=== PATIENT | female | born 2000 | race Caucasian/White ===

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

== ENCOUNTER 2018-07-26 16:41 | Emergency (ER) | payer BC ==
[2018-07-26 17:11] VITALS: BP 143/67
--- NOTE | 2018-07-26 17:48 | UC ---
Throat Pain/Nasal Kavin HPI - HPI Summary HPI Summary: Pt presents with multiple c/o. 1. ST 2. c/o vaginal itching and labia swelling. Pt has used 3 days of otc monistat from a 7 day package. 3. pt has concern for STD's and preganancy. Pt engaged in unprotected sex 6 days ago. Pt has not been taking BCP. - History of Current Complaint Chief Complaint: UCGU Stated Complaint: SORE THROAT Time Seen by Provider: 07/26/18 17:08 Hx Obtained From: Patient Hx Last Menstrual Period: 06/12/17 ?: No Onset/Duration: Sudden Onset, Lasting Days, Still Present Severity: Mild Pain Intensity: 4 Cough: None Associated Signs & Symptoms: Positive: Dysphagia - Epiglottits Risk Factors Epiglottis Risk Factors: Negative - Allergies/Home Medications Allergies/Adverse Reactions: Allergies Allergy/AdvReac Type Severity Reaction Status Date / Time No Known Allergies Allergy Verified 07/26/18 17:11 Home Medications: Home Medications Miconazole VAG.SUPP* [Monistat7*] 100 mg VAGINAL BEDTIME 07/26/18 [History Confirmed 07/26/18] PMH/Surg Hx/FS Hx/Imm Hx Previously Healthy: Yes - Surgical History Surgical History: None - Family History Known Family History: Negative: Cardiac Disease, Hypertension - Social History Occupation: Student - [employer] Lives: Dormitory/Roommates Alcohol Use: Occasionally Substance Use Type: None Smoking Status (MU): Never Smoked Tobacco Have You Smoked in the Last Year: No - Immunization History Most Recent Influenza Vaccination: NOT IN 2017 YET Vaccination Up to Date: Yes Review of Systems Constitutional: Negative Skin: Negative Eyes: Negative ENT: Sore Throat Respiratory: Negative Cardiovascular: Negative Gastrointestinal: Negative Genitourinary: Vaginal/Penile Burning, Vaginal/Penile Itching Motor: Negative Neurovascular: Negative Musculoskeletal: Negative Neurological: Negative Psychological: Negative Is Patient Immunocompromised?: No All Other Systems Reviewed And Are Negative: Yes Physical Exam Triage Information Reviewed: Yes Appearance: Well-Appearing Vital Signs: Initial Vital Signs Temp 97.3 F 07/26/18 17:01 Pulse 92 07/26/18 17:01 Resp 16 07/26/18 17:01 BP 143/67 07/26/18 17:01 Pulse Ox 100 07/26/18 17:01 Vital Signs Reviewed: Yes Eye Exam: Normal ENT Exam: Other ENT: Positive: Tonsillar swelling, Tonsillar exudate Dental Exam: Normal Neck exam: Normal Respiratory Exam: Normal Cardiovascular Exam: Normal Abdominal Exam: Normal Abdomen Description: Positive: Nontender, Soft Bowel Sounds: Positive: Present Musculoskeletal Exam: Normal Neurological Exam: Normal Psychological Exam: Normal Skin Exam: Normal Throat Pain/Nasal Course/Dx - Differential Dx/Diagnosis Differential Diagnosis/HQI/PQRI: Pharyngitis, Tonsillitis, URI, Other - vaginitis Provider Diagnoses: sore throat. vaginitis Discharge - Sign-Out/Discharge Documenting (check all that apply): Patient Departure All imaging exams completed and their final reports reviewed: No Studies - Discharge Plan Condition: Stable Disposition: HOME Patient Education Materials: Pharyngitis (ED), Vaginitis (ED) Referrals: [facility] [Outside] - If Needed No Primary Care Phys,NOPCP [Primary Care Provider] - Additional Instructions: Please follow up with our PCP or the [facility] as needed. If symptoms persist or worsen seek care immediately at the closest healthcare facility. - Billing Disposition and Condition Condition: STABLE Disposition: Home
--- NOTE | 2018-07-29 07:25 | UC ---
- Progress Note Progress Note: notify pt +BV flagyl 500 BID x 7 days ERxed Discharge - Sign-Out/Discharge Documenting (check all that apply): Post-Discharge Follow Up All imaging exams completed and their final reports reviewed: No Studies - Discharge Plan Condition: Stable Disposition: HOME Prescriptions: metroNIDAZOLE [Flagyl] 500 mg PO BID #14 tablet Patient Education Materials: Pharyngitis (ED), Vaginitis (ED) Referrals: [facility] [Outside] - If Needed No Primary Care Phys,NOPCP [Primary Care Provider] - Additional Instructions: Please follow up with our PCP or the [facility] as needed. If symptoms persist or worsen seek care immediately at the closest healthcare facility. - Billing Disposition and Condition Condition: STABLE Disposition: Home
== END 2018-07-26 17:56 | disposition home or self-care (01) ==
LOC: UCCORT 16:41
DX: J02.9 Acute pharyngitis, unspecified (principal); N76.0 Acute vaginitis
CPT/HCPCS: 81003; 84702; 87480; 87491; 87510; 87591; 87651; 87660; 99212; G0463

== ENCOUNTER 2018-12-22 10:33 | Emergency (ER) | payer BC ==
[2018-12-22 11:02] VITALS: BP 133/66
--- NOTE | 2018-12-22 11:32 | ED ---
Neurological HPI - HPI Summary HPI Summary: Sunday night she drank etoh heavily and smoked cannibus. She denies opioid use of any kind. She awoke yesterday with left arm tingling and left shoulder weakness. She knows she slept in an awkward position. Denies neck pain, traum, bruising or injury. - History of Current Complaint Chief Complaint: UCUpperExtremity Stated Complaint: L ARM NUMB AND TINGLING Time Seen by Provider: 12/22/18 11:14 Hx Obtained From: Patient Hx Last Menstrual Period: 12/17/18 Onset/Duration: Gradual Onset, Started hours ago Onset Severity: Moderate Current Severity: Moderate Neurological Deficit Location: LUE Headache Location: Diffuse (Left) Pain Intensity: 9 Character: Numbness/Tingling, Paresthesia, Motor Weakness Aggravating: Alcohol/Drug Ingestion Alleviating: Nothing Associated Signs and Symptoms: Positive: Weakness. Negative: Tinnitus, Unsteady Gait, Visual Changes, Headache, Memory Loss, Seizure, Decreased Level of Consciousness, Impaired Speech, Numbness, Sinus Pressure, Fever, Neck Pain/ Stiffness - Allergy/Home Medications Allergies/Adverse Reactions: Allergies Allergy/AdvReac Type Severity Reaction Status Date / Time No Known Allergies Allergy Verified 12/22/18 11:02 Home Medications: Home Medications NK [No Home Medications Reported] 12/22/18 [History Confirmed 12/22/18] PMH/Surg Hx/FS Hx/Imm Hx Previously Healthy: No Infectious Disease History: No Infectious Disease History: Denies: Traveled Outside the [place] in Last 30 Days - Family History Known Family History: Negative: Cardiac Disease, Hypertension - Social History Alcohol Use: Weekly Substance Use Type: Reports: None Smoking Status (MU): Light Every Day Tobacco Smoker Type: eCigarettes Have You Smoked in the Last Year: No Review of Systems Positive: Weakness, Paresthesia All Other Systems Reviewed And Are Negative: Yes Physical Exam Triage Information Reviewed: Yes Vital Signs On Initial Exam: Initial Vitals Temp Pulse Resp BP Pulse Ox 97.4 F 80 18 133/66 98 12/22/18 10:55 12/22/18 10:55 12/22/18 10:55 12/22/18 10:55 12/22/18 10:55 Vital Signs Reviewed: Yes Appearance: Positive: Well-Appearing, No Pain Distress, Obese Skin: Positive: Warm, Skin Color Reflects Adequate Perfusion Head/Face: Positive: Normal Head/Face Inspection Eyes: Positive: Normal, EOMI, CHARLES ENT: Positive: Hearing grossly normal Neck: Positive: Supple, Nontender, No Lymphadenopathy. Negative: Nuchal Rigidity Respiratory/Lung Sounds: Positive: Breath Sounds Present, Decreased Breath Sounds. Negative: Rales, Rhonchi Cardiovascular: Positive: RRR, Pulses are Symmetrical in both Upper and Lower Extremities Abdomen Description: Positive: No Organomegaly, Soft. Negative: Distended, Guarding Pelvic Exam: Positive: No Masses Musculoskeletal: Positive: Strength/ROM Intact Neurological: Positive: Normal - Symmetric, no bruisnig or tenderness. Neck full rom and spurling neg. No neck tenderness. 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 There is weakness with shoulder abduction. There is no winging of the scapula.. Negative: Sensory/Motor Intact Psychiatric: Positive: Normal AVPU Assessment: Alert Diagnostics - Vital Signs Vital Signs Temp Pulse Resp BP Pulse Ox 12/22/18 10:55 97.4 F 80 18 133/66 98 - Laboratory Lab Statement: Any lab studies that have been ordered have been reviewed, and results considered in the medical decision making process. Course/Dx - Course Course Of Treatment: We discussed meaning of sunday night palsy and that specialist f/u is in order. No trauma to suggest mechanism for disc herniation or rotator cuff tear. THis is likely brachial plexus injury. - Differential Dx Differential Diagnoses Neuro: Positive: Drug Toxicity, Intracranial Bleed, Meningitis - Diagnoses Provider Diagnoses: Sunday night nerve palsy Discharge - Sign-Out/Discharge Documenting (check all that apply): Patient Departure All imaging exams completed and their final reports reviewed: No Studies - Discharge Plan Condition: Fair Disposition: HOME Patient Education Materials: Paresthesia (ED) Referrals: No Primary Care Phys,NOPCP [Primary Care Provider] - Sumanth Isidro MD [Medical Doctor] - Additional Instructions: This is called SUNDAY NIGHT PALSY. - Billing Disposition and Condition Condition: FAIR Disposition: Home
== END 2018-12-22 11:31 | disposition home or self-care (01) ==
LOC: UCCORT 10:33
DX: G58.9 Mononeuropathy, unspecified (principal); F17.290 Nicotine dependence, other tobacco product, uncomplicated
CPT/HCPCS: 99211; G0463

== ENCOUNTER 2019-02-19 20:39 | Emergency (ER) | payer BC ==
[2019-02-19 20:55] VITALS: BP 134/52
--- NOTE | 2019-02-19 21:04 | UC ---
Throat Pain/Nasal Kavin HPI - HPI Summary HPI Summary: Pt c/o ST and "white stuff" on right tonsil X 2 days. Denies fever, chills or difficulty swallowing. - History of Current Complaint Chief Complaint: UCGeneralIllness Stated Complaint: SORE THROAT Time Seen by Provider: 02/19/19 20:43 Hx Obtained From: Patient Hx Last Menstrual Period: 02/18/19 ?: No Onset/Duration: Gradual Onset, Lasting Days, Still Present Severity: Mild Pain Intensity: 3 Cough: None - Epiglottits Risk Factors Epiglottis Risk Factors: Negative - Allergies/Home Medications Allergies/Adverse Reactions: Allergies Allergy/AdvReac Type Severity Reaction Status Date / Time No Known Allergies Allergy Verified 02/19/19 20:50 PMH/Surg Hx/FS Hx/Imm Hx Previously Healthy: Yes - Surgical History Surgical History: None - Family History Known Family History: Negative: Cardiac Disease, Hypertension - Social History Occupation: Student Lives: Dormitory/Roommates Alcohol Use: Occasionally Substance Use Type: None Smoking Status (MU): Light Every Day Tobacco Smoker Type: eCigarettes Amount Used/How Often: 1 cartridge/week Have You Smoked in the Last Year: Yes - eCig - Immunization History Most Recent Influenza Vaccination: NOT IN 2017 YET Vaccination Up to Date: Yes Review of Systems All Other Systems Reviewed And Are Negative: Yes Constitutional: Positive: Negative Skin: Positive: Negative Eyes: Positive: Negative ENT: Positive: Sore Throat Respiratory: Positive: Negative Cardiovascular: Positive: Negative Gastrointestinal: Positive: Negative Genitourinary: Positive: Negative Motor: Positive: Negative Neurovascular: Positive: Negative Musculoskeletal: Positive: Negative Neurological: Positive: Negative Psychological: Positive: Negative Is Patient Immunocompromised?: No Physical Exam Triage Information Reviewed: Yes Appearance: Well-Appearing Vital Signs: Initial Vital Signs Temp 98.3 F 02/19/19 20:50 Pulse 94 02/19/19 20:50 Resp 16 02/19/19 20:50 BP 134/52 02/19/19 20:50 Pulse Ox 99 02/19/19 20:50 Vital Signs Reviewed: Yes Eye Exam: Normal ENT Exam: Other ENT: Positive: Pharyngeal erythema, Tonsillar swelling, Tonsillar exudate - rigth tonsil, Dental Exam: Normal Neck exam: Normal Respiratory Exam: Normal Cardiovascular Exam: Normal Musculoskeletal Exam: Normal Neurological Exam: Normal Psychological Exam: Normal Skin Exam: Normal Throat Pain/Nasal Course/Dx - Differential Dx/Diagnosis Differential Diagnosis/HQI/PQRI: Mononucleosis, Pharyngitis, Tonsillitis Provider Diagnosis: Tonsillitis with exudate Discharge - Sign-Out/Discharge Documenting (check all that apply): Patient Departure All imaging exams completed and their final reports reviewed: No Studies - Discharge Plan Condition: Stable Disposition: HOME Patient Education Materials: Tonsillitis (ED) Referrals: [facility] [Outside] - If Needed No Primary Care Phys,NOPCP [Primary Care Provider] - - Billing Disposition and Condition Condition: STABLE Disposition: Home
== END 2019-02-19 21:12 | disposition home or self-care (01) ==
LOC: UCCORT 20:39
DX: J03.90 Acute tonsillitis, unspecified (principal); F17.210 Nicotine dependence, cigarettes, uncomplicated
CPT/HCPCS: 87651; 99211; G0463

== ENCOUNTER 2019-06-23 11:27 | Emergency (ER) | payer BC ==
[2019-06-23 11:41] VITALS: BP 122/61
--- NOTE | 2019-06-23 12:15 | ED ---
Respiratory - HPI Summary HPI Summary: 18 yr old female with the complaint of runny nose, coughing, sore throat. Onset yesterday. Her ears feel plugged. She states that her cough is what bothers her the most. She has no fever. She has no SOB. No history of asthma. She is not a smoker. She is from [place], [place]. She is a [employer] student. - History of Current Complaint Chief Complaint: UCGeneralIllness Stated Complaint: COUGH,CONGESTION Time Seen by Provider: 06/23/19 12:00 Pain Intensity: 0 - Allergy/Home Medications Allergies/Adverse Reactions: Allergies Allergy/AdvReac Type Severity Reaction Status Date / Time No Known Allergies Allergy Verified 06/23/19 11:41 Home Medications: Home Medications Dm/Acetaminophen/Doxylamine [Nighttime Cold and Flu Liquid] 30 ml PO ONCE [History Confirmed 06/23/19] PMH/Surg Hx/FS Hx/Imm Hx Infectious Disease History: No Infectious Disease History: Denies: Traveled Outside the in Last 30 Days - Family History Known Family History: Positive: None Negative: Cardiac Disease, Hypertension - Social History Occupation: Student Alcohol Use: Weekly Substance Use Type: Reports: Marijuana Substance Use Comment - Amount & Last Used: occasionally Smoking Status (MU): Light Every Day Tobacco Smoker Type: eCigarettes Amount Used/How Often: 1 cartridge/week Have You Smoked in the Last Year: Yes - eCig Review of Systems Constitutional: Negative Positive: Sore Throat, Nasal Discharge Positive: Cough All Other Systems Reviewed And Are Negative: Yes Physical Exam Triage Information Reviewed: Yes Vital Signs On Initial Exam: Initial Vitals Temp Pulse Resp BP Pulse Ox 98.2 F 80 16 122/61 100 06/23/19 11:35 06/23/19 11:35 06/23/19 11:35 06/23/19 11:35 06/23/19 11:35 Vital Signs Reviewed: Yes Appearance: Positive: Well-Appearing, No Pain Distress Skin: Positive: Warm, Skin Color Reflects Adequate Perfusion Head/Face: Positive: Normal Head/Face Inspection Eyes: Positive: EOMI, CHARLES ENT: Positive: Pharyngeal erythema, Nasal congestion, Nasal drainage, TM red - left with effussion and redness.. Negative: Muffled voice, Hoarse voice, Sinus tenderness Neck: Positive: Supple Respiratory/Lung Sounds: Positive: Clear to Auscultation, Breath Sounds Present Cardiovascular: Positive: RRR. Negative: Murmur Abdomen Description: Negative: Distended Musculoskeletal: Positive: Strength/ROM Intact Neurological: Positive: Sensory/Motor Intact, Alert, Oriented to Person Place, Time, CN Intact II-III, Normal Gait, Speech Normal Psychiatric: Positive: Normal Diagnostics - Vital Signs Vital Signs Temp Pulse Resp BP Pulse Ox 06/23/19 11:35 98.2 F 80 16 122/61 100 - Laboratory Lab Statement: Any lab studies that have been ordered have been reviewed, and results considered in the medical decision making process. Disposition - Course Course Of Treatment: 18 yr old with URI and left otitis media. tessalon and albuterol MDI for cough, and amox for left OM. - Diagnoses Provider Diagnoses: Left otitis media, Upper respiratory infection Discharge ED - Sign-Out/Discharge Documenting (check all that apply): Patient Departure All imaging exams completed and their final reports reviewed: No Studies - Discharge Plan Condition: Good Disposition: HOME Prescriptions: Albuterol HFA INHALER* [Ventolin HFA Inhaler*] 1 - 2 puff INH Q6H PRN #1 mdi PRN Reason: Cough Amoxicillin PO (*) [Amoxicillin 500 MG CAP*] 500 mg PO TID #30 cap Benzonatate CAP* [Tessalon 100 MG CAP*] 100 mg PO TID #14 cap Patient Education Materials: Ear Infection (ED), Upper Respiratory Infection ( ED) Referrals: No Primary Care Phys,NOPCP [Primary Care Provider] - [facility] [Outside] - 1 Day [facility] [Outside] - 1 Day - Billing Disposition and Condition Condition: GOOD Disposition: Home
== END 2019-06-23 12:19 | disposition home or self-care (01) ==
LOC: UCCORT 11:27
DX: H66.92 Otitis media, unspecified, left ear (principal); J06.9 Acute upper respiratory infection, unspecified; F17.290 Nicotine dependence, other tobacco product, uncomplicated
CPT/HCPCS: 99212; G0463

== ENCOUNTER 2019-11-10 10:35 | Emergency (ER) | payer BC ==
[2019-11-10 10:52] VITALS: BP 124/57
--- NOTE | 2019-11-10 11:16 | UC ---
Lower Extremity/Ankle HPI - HPI Summary HPI Summary: Pt presents with c/o puncture wound in left foot that occurred last night. Pt sates she stepped on belt buckle at apartment and "2 inch piece went through foot". Pt is UTD with vaccinations. PO - History of Current Complaint Chief Complaint: UCLowerExtremity Stated Complaint: LT FOOT INJURY Time Seen by Provider: 11/10/19 11:00 Hx Obtained From: Patient Hx Last Menstrual Period: 11/09/19 ?: No Onset/Duration: Sudden Onset, Still Present Severity Initially: Moderate Severity Currently: Mild Pain Intensity: 4 Aggravating Factor(s): Standing, Ambulation Alleviating Factor(s): Rest Able to Bear Weight: Yes - painful - Risk Factors Gout Risk Factors: Negative DVT Risk Factors: Negative Septic Arthritis Risk Factor: Negative - Allergies/Home Medications Allergies/Adverse Reactions: Allergies Allergy/AdvReac Type Severity Reaction Status Date / Time No Known Allergies Allergy Verified 11/10/19 10:52 Home Medications: Home Medications Ibuprofen 600 mg PO Q6HR PRN 11/10/19 [History Confirmed 11/10/19] PMH/Surg Hx/FS Hx/Imm Hx Previously Healthy: Yes - Surgical History Surgical History: None - Family History Known Family History: Positive: None Negative: Cardiac Disease, Hypertension - Social History Occupation: Student - [employer] Lives: Dormitory/Roommates Alcohol Use: Occasionally Substance Use Type: None Substance Use Comment - Amount & Last Used: occasionally Smoking Status (MU): Former Smoker Type: eCigarettes Amount Used/How Often: 1 cartridge/week Have You Smoked in the Last Year: Yes - eCig - Immunization History Most Recent Influenza Vaccination: NOT IN 2017 YET Vaccination Up to Date: Yes Review of Systems All Other Systems Reviewed And Are Negative: Yes Constitutional: Positive: Negative Skin: Positive: Other - puncture wound Eyes: Positive: Negative ENT: Positive: Negative Respiratory: Positive: Negative Cardiovascular: Positive: Negative Gastrointestinal: Positive: Negative Genitourinary: Positive: Negative Motor: Positive: Negative Neurovascular: Positive: Negative Musculoskeletal: Positive: Myalgia - pain at puncture site Neurological: Positive: Negative Psychological: Positive: Negative Is Patient Immunocompromised?: No Physical Exam Triage Information Reviewed: Yes Appearance: Well-Appearing Vital Signs: Initial Vital Signs Temp 98 F 11/10/19 10:46 Pulse 82 11/10/19 10:46 Resp 16 11/10/19 10:46 BP 124/57 11/10/19 10:46 Pulse Ox 99 11/10/19 10:46 Vital Signs Reviewed: Yes Eye Exam: Normal ENT Exam: Normal ENT: Positive: Hearing grossly normal Dental Exam: Normal Neck exam: Normal Respiratory: Positive: No respiratory distress Musculoskeletal: Positive: Other: - pain at puncture site mid foot Neurological Exam: Normal Psychological Exam: Normal Skin Exam: Other - puncture wound mid left foot Diagnostics - Radiology No standard instances Radiology Interpretation Completed By: Radiologist - negative for FB, negative fracture Lower Extremity Course/Dx - Differential Dx/Diagnosis Differential Diagnosis/HQI/PQRI: Cellulitis, Foreign Body, Other Provider Diagnosis: Puncture wound of left foot Discharge ED - Sign-Out/Discharge Documenting (check all that apply): Patient Departure All imaging exams completed and their final reports reviewed: Yes - Discharge Plan Condition: Stable Disposition: HOME Prescriptions: Cephalexin CAP* [Keflex 500 CAP*] 500 mg PO Q12H #10 cap Patient Education Materials: Puncture Wound (ED) Forms: *School Release Referrals: [facility] [Outside] - If Needed No Primary Care Phys,NOPCP [Primary Care Provider] - - Billing Disposition and Condition Condition: STABLE Disposition: Home - Attestation Statements Provider Attestation: This patient was not seen by me. I was available for consult. Chart reviewed ERIC
== END 2019-11-10 12:20 | disposition home or self-care (01) ==
LOC: UCCORT 10:35
DX: S91.332A Puncture wound without foreign body, left foot, initial encounter (principal); Z87.891 Personal history of nicotine dependence; W22.8XXA Striking against or struck by other objects, initial encounter; Y92.9 Unspecified place or not applicable
CPT/HCPCS: 99213; G0463

== ENCOUNTER 2019-11-11 12:40 | Emergency (ER) | payer BC ==
[2019-11-11 12:55] VITALS: BP 130/58
--- NOTE | 2019-11-11 12:58 | UC ---
General HPI - HPI Summary HPI Summary: Patient is a 19yo female presenting with request for tetanus shot. Patient states she was seen here yesterday after stepping on prong of belt buckle. Patient states she has been treated with keflex and given a boot to help relieve pain with walking. States she thought she was UTD on tetanus but called pedicatrician yesterday and told last booster was 2008. She would like it updated today. Patient still notes pain in foot. Denies drainage or bleeding. Denies increased redness and warmth. Denies fever, chills, n/v. - History of Current Complaint Chief Complaint: UCLowerExtremity Stated Complaint: NEEDS SHOT Hx Obtained From: Patient Hx Last Menstrual Period: 11/09/19 Pain Intensity: 8 - Allergy/Home Medications Allergies/Adverse Reactions: Allergies Allergy/AdvReac Type Severity Reaction Status Date / Time No Known Allergies Allergy Verified 11/11/19 12:51 PMH/Surg Hx/FS Hx/Imm Hx Previously Healthy: Yes - Surgical History Surgical History: None - Family History Known Family History: Positive: None Negative: Cardiac Disease, Hypertension - Social History Alcohol Use: Occasionally Substance Use Type: None Substance Use Comment - Amount & Last Used: occasionally Smoking Status (MU): Former Smoker Type: eCigarettes Amount Used/How Often: 1 cartridge/week Have You Smoked in the Last Year: Yes - eCig - Immunization History Most Recent Influenza Vaccination: NOT IN 2017 YET Vaccination Up to Date: Yes Review of Systems All Other Systems Reviewed And Are Negative: No Constitutional: Positive: Negative Skin: Positive: Other - puncture wound L foot Respiratory: Positive: Negative Cardiovascular: Positive: Negative Gastrointestinal: Positive: Negative Musculoskeletal: Positive: Negative Neurological: Positive: Negative Physical Exam - Summary Physical Exam Summary: Vital Signs Reviewed: Yes A+Ox3, no distress Eyes: Conjunctiva Clear ENT: Hearing grossly normal Neck: Positive: Supple Respiratory: Positive: No respiratory distress, No accessory muscle use Cardiovascular: skin reflects adequate perfusion Musculoskeletal Exam: GALVAN x 4 without difficulty Neurological: Positive: Alert Psychological: Positive: age appropriate behavior Skin: Positive: ~5mm round healing puncture wound noted on sole of left foot. no erythema, warmth, fluctuance, drainage, or bleeding. +TTP of wound. no rash, no ecchymosis Vital Signs: Initial Vital Signs Temp 97.5 F 11/11/19 12:52 Pulse 77 11/11/19 12:52 Resp 14 11/11/19 12:52 BP 130/58 11/11/19 12:52 Pulse Ox 100 11/11/19 12:52 Course/Dx - Course Course Of Treatment: Patient received tetanus booster. Recheck of wound shows no s/s of infection. Instructed to finish full course of antibiotic. Educated on s/s of infection and instructed to return or go to pcp if any red flags occur. Patient voiced understanding and agreed with treatment plan. - Diagnoses Provider Diagnosis: Need for tetanus booster, Puncture wound of left foot Discharge ED - Sign-Out/Discharge Documenting (check all that apply): Patient Departure All imaging exams completed and their final reports reviewed: No Studies - Discharge Plan Condition: Stable Disposition: HOME Patient Education Materials: Diphtheria/Acellular Pertussis/Tetanus Booster Vaccine (By injection), Puncture Wound (ED) Referrals: [facility] [Outside] - If Needed [facility] [Outside] - If Needed Additional Instructions: You received your tetanus shot today. You may be sore at the site of injection. This is normal and will fade over the next few days. Continue to take the full course of antibiotics as prescribed. Change dressing as needed. Return or follow up with your primary care provider or the [facility] listed below if you experience new or worsening symptoms. - Billing Disposition and Condition Condition: STABLE Disposition: Home
[2019-11-11] MEDS ORDERED: Tetan/Diph/Pertus SYR(Tdap)* 0.5 ML SYR(BOOSTRIX) use SYR contains LATEX IM ONE (13:01)
== END 2019-11-11 13:09 | disposition home or self-care (01) ==
LOC: UCCORT 12:40
DX: S91.332A Puncture wound without foreign body, left foot, initial encounter (principal); Z23 Encounter for immunization; W22.8XXA Striking against or struck by other objects, initial encounter; Y92.9 Unspecified place or not applicable; Z87.891 Personal history of nicotine dependence
CPT/HCPCS: 90471; 90715; 99211; G0463